=== PATIENT | female | born 1985 | race American Indian/Alaskan Native ===

== ENCOUNTER 2016-07-31 13:33 | Emergency (ER) | payer MEDICAID ==
[2016-07-31 14:31] VITALS: BP 140/77
[2016-07-31] MEDS: TYLENOL/CODEINE PO ONE ×2 (16:33→16:54)
[2016-07-31] MEDS ORDERED: TYLENOL/CODEINE PO ONE (16:33)
[2016-07-31] MEDS ORDERED: DECADRON PO ONE (16:33)
[2016-07-31] MEDS ORDERED: LIDOCAINE VISCOUS 2% PO ONE (16:33)
--- NOTE | 2016-07-31 16:35 | Emergency Department Report ---
ED ENT HPI - General Chief complaint: Sore Throat Stated complaint: SWOLLEN TONSILS Time Seen by Provider: 07/31/16 16:34 Source: patient Mode of arrival: Ambulatory Limitations: No Limitations - History of Present Illness Initial comments: Patient reports sore throat that started three days ago and a history of tonsillitis MD complaint: sore throat Onset/Timin -: days(s) Location: throat Severity: severe Severity scale (0 -10): 8 Quality: aching Consistency: constant Improves with: none Worsens with: swallowing Context-Epistaxis: other (none) Context- Dental: other (none) Context- Ear: other (none) Associated Symptoms: pain with swallowing, sore throat - Related Data Previous Rx's Medication Instructions Recorded Last Taken Type Amoxicillin [Amoxicillin TAB] 875 mg PO BID #20 tablet 07/31/16 Unknown Rx predniSONE [Deltasone] 20 mg PO BID #10 tablet 07/31/16 Unknown Rx Allergies Allergy/AdvReac Type Severity Reaction Status Date / Time No Known Allergies Allergy Verified 07/31/16 16:54 ED Dental HPI - General Chief complaint: Sore Throat Stated complaint: SWOLLEN TONSILS Source: patient Mode of arrival: Ambulatory Limitations: No Limitations - Related Data Previous Rx's Medication Instructions Recorded Last Taken Type Amoxicillin [Amoxicillin TAB] 875 mg PO BID #20 tablet 07/31/16 Unknown Rx predniSONE [Deltasone] 20 mg PO BID #10 tablet 07/31/16 Unknown Rx Allergies Allergy/AdvReac Type Severity Reaction Status Date / Time No Known Allergies Allergy Verified 07/31/16 16:54 ED Review of Systems ROS: Stated complaint: SWOLLEN TONSILS Other details as noted in HPI Constitutional: denies: chills, diaphoresis, fever, malaise, weakness Eyes: denies: eye pain, eye discharge, vision change ENT: throat pain. denies: ear pain, dental pain, hearing loss, epistaxis, congestion Respiratory: denies: cough, orthopnea, shortness of breath, SOB with exertion, SOB at rest, stridor, wheezing Cardiovascular: denies: chest pain, palpitations, dyspnea on exertion, orthopnea , edema, syncope, paroxysmal nocturnal dyspnea Gastrointestinal: denies: abdominal pain, nausea, vomiting, diarrhea, constipation Neurological: denies: headache, weakness, numbness, paresthesias, confusion, abnormal gait, vertigo ED Past Medical Hx - Past Medical History Previous Medical History?: No - Surgical History Additional Surgical History: C section - Social History Smoking Status: Never Smoker Substance Use Type: Alcohol - Medications Home Medications: Home Medications Medication Instructions Recorded Confirmed Last Taken Type Amoxicillin [Amoxicillin TAB] 875 mg PO BID #20 tablet 07/31/16 Unknown Rx predniSONE [Deltasone] 20 mg PO BID #10 tablet 07/31/16 Unknown Rx ED Physical Exam - General Limitations: No Limitations General appearance: alert, in no apparent distress - Head Head exam: Present: atraumatic, normocephalic - Eye Eye exam: Present: normal appearance, PERRL, EOMI Pupils: Present: normal accommodation - ENT ENT exam: Present: mucous membranes moist, TM's normal bilaterally, normal external ear exam. Absent: mucous membranes dry - Expanded ENT Exam Expanded Mouth exam: Present: normal external inspection, tongue normal. Absent: drooling, trismus, muffled voice, tongue elevation, laceration Teeth exam: Present: normal inspection Throat exam: Positive: tonsillomegaly, tonsillar exudate. Negative: tonsillar erythema, R peritonsillar mass, L peritonsillar mass - Neck Neck exam: Present: normal inspection, full ROM, lymphadenopathy. Absent: tenderness, meningismus, thyromegaly - Respiratory Respiratory exam: Present: normal lung sounds bilaterally. Absent: respiratory distress, wheezes, rales, rhonchi, stridor - Cardiovascular Cardiovascular Exam: Present: regular rate, normal rhythm, normal heart sounds. Absent: systolic murmur, diastolic murmur, rubs, gallop - Extremities Exam Extremities exam: Present: normal inspection, full ROM, normal capillary refill. Absent: tenderness, pedal edema, joint swelling - Neurological Exam Neurological exam: Present: alert, oriented X3, CN II-XII intact, normal gait, reflexes normal. Absent: motor sensory deficit - Skin Skin exam: Present: warm, dry, intact, normal color. Absent: rash ED Course Vital Signs 07/31/16 14:26 Temperature 98.3 F Pulse Rate 84 Respiratory 18 Rate Blood Pressure 140/77 O2 Sat by Pulse 100 Oximetry - Reevaluation(s) Reevaluation #1: 07/31/16 17:17 pain medication, oral steroid with lidocaine viscous ordered ED Medical Decision Making - Lab Data Vital Signs 07/31/16 14:26 Temperature 98.3 F Pulse Rate 84 Respiratory 18 Rate Blood Pressure 140/77 O2 Sat by Pulse 100 Oximetry - Medical Decision Making During the course of ED, pain medication, oral steroids and lidocaine viscous were ordered. The patient was sent home with prescriptions for Amoxicillin and Prednisone, instructed to follow up with the selective referral given at discharge, she verbalized understanding - Differential Diagnosis Tonsilititis, Upper Respiratory Infection Critical care attestation.: If time is entered above; I have spent that time in minutes in the direct care of this critically ill patient, excluding procedure time. ED Disposition Clinical Impression: Acute bacterial tonsillitis Disposition: DISCHARGED TO HOME OR SELFCARE Is pt being admited?: No Does the pt Need Aspirin: No Condition: Stable Instructions: Tonsillitis (ED) Additional Instructions: Take medication as directed. Follow up with the selective referral given at discharge. Return back to the ED for worsening symptoms or concerns Prescriptions: Amoxicillin [Amoxicillin TAB] 875 mg PO BID #20 tablet predniSONE [Deltasone] 20 mg PO BID #10 tablet Referrals: TITI ALBARADO MD [Staff Physician] - 3-5 Days Forms: Work/School Release Form(ED) Time of Disposition: 17:21
== END 2016-07-31 17:34 | disposition home or self-care (01) ==
LOC: ED 13:33
DX: J03.80 Acute tonsillitis due to other specified organisms (principal); B96.89 Other specified bacterial agents as the cause of diseases classified elsewhere
CPT/HCPCS: 99282; J1100

== ENCOUNTER 2016-09-06 13:50 | Emergency (ER) | payer MEDICAID ==
[2016-09-06] MEDS ORDERED: TORADOL IM ONE (15:19)
[2016-09-06] MEDS ORDERED: DECADRON IM ONE (15:19)
--- NOTE | 2016-09-06 18:39 | Emergency Department Report ---
Entered by IRINA CARBAJAL, acting as scribe for ALDARIUS HARRISON PA. ED ENT HPI - General Chief complaint: Sore Throat Stated complaint: SWOLLEN TONSILS/MIGRAINE Source: patient Mode of arrival: Ambulatory Limitations: No Limitations - History of Present Illness Initial comments: 31 year old female with a PMHx of tonsillitis annually presents to the ED c/o a sore throat that began 3 days ago. Rates pain an 8/10 in severity. Associated symptoms headache, and left ear pain, but she denies nausea, vomiting, fever, chills, SOB, and chest pain. Reports pain worsens with swallowing and is alleviated by nothing. Notes she had a past appointment for a tonsillectomy before moving to [place]. Denies having a PCP. LMP 09/06/2016. NKDA. INIGUEZ complaint: sore throat, difficulty swallowing Onset/Timin -: days(s) Location: L ear, throat Severity: moderate Severity scale (0 -10): 8 Quality: aching Improves with: none Worsens with: swallowing Associated Symptoms: pain with swallowing, sore throat, other (difficulty swallowing and left neck swelling, but denies nausea, vomiting, chest pain, and SOB). denies: fever, cough - Related Data Previous Rx's Medication Instructions Recorded Last Taken Type Amoxicillin [Amoxicillin TAB] 875 mg PO BID #20 tablet 07/31/16 Unknown Rx predniSONE [Deltasone] 20 mg PO BID #10 tablet 07/31/16 Unknown Rx Amoxicillin 500 mg PO Q8H #21 capsule 09/06/16 Unknown Rx Ketorolac [Toradol] 10 mg PO Q6H PRN #20 tablet 09/06/16 Unknown Rx methylPREDNISolone [Medrol Dose 4 mg PO QAM #1 pack 09/06/16 Unknown Rx Jim] Allergies Allergy/AdvReac Type Severity Reaction Status Date / Time No Known Allergies Allergy Verified 07/31/16 16:54 ED Dental HPI - General Chief complaint: Sore Throat Stated complaint: SWOLLEN TONSILS/MIGRAINE Source: patient Mode of arrival: Ambulatory Limitations: No Limitations - History of Present Illness complaint: sore throat Onset/Timin -: days(s) Severity: moderate Quality: aching Consistency: constant Improves with: none Worsens with: swallowing Dental Associated Symptons: Yes: Headache, Earache. No: Sore Throat, Fever - Related Data Previous Rx's Medication Instructions Recorded Last Taken Type Amoxicillin [Amoxicillin TAB] 875 mg PO BID #20 tablet 07/31/16 Unknown Rx predniSONE [Deltasone] 20 mg PO BID #10 tablet 07/31/16 Unknown Rx Amoxicillin 500 mg PO Q8H #21 capsule 09/06/16 Unknown Rx Ketorolac [Toradol] 10 mg PO Q6H PRN #20 tablet 09/06/16 Unknown Rx methylPREDNISolone [Medrol Dose 4 mg PO QAM #1 pack 09/06/16 Unknown Rx Jim] Allergies Allergy/AdvReac Type Severity Reaction Status Date / Time No Known Allergies Allergy Verified 07/31/16 16:54 ED Review of Systems Comment: All other systems reviewed and negative Constitutional: denies: chills, fever, other (tingling) ENT: ear pain (left ear), throat pain Respiratory: denies: cough, shortness of breath, stridor, wheezing Cardiovascular: denies: chest pain Gastrointestinal: denies: abdominal pain, nausea, vomiting Genitourinary: denies: dysuria Musculoskeletal: denies: back pain Skin: denies: rash Neurological: headache. denies: numbness ED Past Medical Hx - Past Medical History Previous Medical History?: Yes Hx Headaches / Migraines: Yes - Surgical History Past Surgical History?: No Additional Surgical History: C section - Social History Smoking Status: Never Smoker Substance Use Type: Alcohol - Medications Home Medications: Home Medications Medication Instructions Recorded Confirmed Last Taken Type Amoxicillin [Amoxicillin TAB] 875 mg PO BID #20 tablet 07/31/16 Unknown Rx predniSONE [Deltasone] 20 mg PO BID #10 tablet 07/31/16 Unknown Rx Amoxicillin 500 mg PO Q8H #21 capsule 09/06/16 Unknown Rx Ketorolac [Toradol] 10 mg PO Q6H PRN #20 tablet 09/06/16 Unknown Rx methylPREDNISolone [Medrol Dose 4 mg PO QAM #1 pack 09/06/16 Unknown Rx Jim] ED Physical Exam - General Limitations: No Limitations General appearance: alert, in no apparent distress - Head Head exam: Present: atraumatic, normocephalic - Eye Eye exam: Present: normal appearance, EOMI - ENT ENT exam: Present: normal exam, mucous membranes moist, TM's normal bilaterally - Expanded ENT Exam Expanded Ear exam: Present: normal external inspection Mouth exam: Present: normal external inspection Teeth exam: Present: normal inspection Throat exam: Positive: tonsillomegaly, tonsillar exudate (mild exudate bilaterally). Negative: tonsillar erythema, R peritonsillar mass, L peritonsillar mass - Neck Neck exam: Present: normal inspection, full ROM. Absent: lymphadenopathy - Respiratory Respiratory exam: Present: normal lung sounds bilaterally. Absent: respiratory distress, wheezes, rales, rhonchi - Cardiovascular Cardiovascular Exam: Present: regular rate, normal rhythm. Absent: systolic murmur, diastolic murmur, rubs, gallop - GI/Abdominal GI/Abdominal exam: Present: soft, normal bowel sounds - Extremities Exam Extremities exam: Present: normal inspection, full ROM - Back Exam Back exam: Present: normal inspection, full ROM - Neurological Exam Neurological exam: Present: alert, oriented X3, normal gait - Psychiatric Psychiatric exam: Present: normal affect, normal mood - Skin Skin exam: Present: warm, dry, intact. Absent: rash ED Course Vital Signs 09/06/16 14:05 Temperature 98.3 F Pulse Rate 84 Respiratory 18 Rate Blood Pressure 137/85 O2 Sat by Pulse 100 Oximetry ED Medical Decision Making - Lab Data negative strep test Pending Strep Culture Lab Results 09/06/16 Range/Units Unknown Urine HCG, Qual Negative (Negative) - Medical Decision Making 31 year old female presents to ED with bilateral throat pain. Patient denies difficulty breathing or talking. patient states she has annual swelling of tonsils. Patient will be given RX for steroids, abx and NSAID's and referred to ENT for further evaluation. No sign of peritonsillar abscess, drooling, fever, dysphagia or labored breathing present on examination. ED Disposition Clinical Impression: Tonsillitis Disposition: DISCHARGED TO HOME OR SELFCARE Is pt being admited?: No Does the pt Need Aspirin: No Condition: Stable Instructions: Tonsillitis (ED) Additional Instructions: Please return to ED immediately if you have difficulty breathing or if swelling worsens. Prescriptions: Amoxicillin 500 mg PO Q8H #21 capsule Ketorolac [Toradol] 10 mg PO Q6H PRN #20 tablet PRN Reason: Pain methylPREDNISolone [Medrol Dose Jim] 4 mg PO QAM #1 pack Referrals: PRIMARY CAREMD [Primary Care Provider] - 3-5 Days ENT [facility] [Provider Group] - 3-5 Days Forms: Work/School Release Form(ED) This documentation as recorded by the scribeSOLOMON JASMINE,accurately reflects the service I personally performed and the decisions made by ,LADARIUS HARRISON PA.
[2016-09-06 18:50] VITALS: BP 143/86
== END 2016-09-06 18:48 | disposition home or self-care (01) ==
LOC: ED 13:50
DX: J03.90 Acute tonsillitis, unspecified (principal); G43.909 Migraine, unspecified, not intractable, without status migrainosus
CPT/HCPCS: 81025; 87116; 87430; 96372; 99283; J1100; J1885

== ENCOUNTER 2017-04-15 16:54 | Emergency (ER) | payer MEDICAID ==
[2017-04-15 17:07] VITALS: BP 113/60
--- NOTE | 2017-04-15 18:28 | Emergency Department Report ---
ED General Adult HPI - General Chief complaint: Sore Throat Stated complaint: THROAT PAIN Time Seen by Provider: 04/15/17 18:05 Source: patient Mode of arrival: Ambulatory Limitations: No Limitations - History of Present Illness Initial comments: 32 year old female presents with sore throat, cough, congestion for a few days. states taking otc medication with no relief. denies fever, cp, sob, abdominal pain, pelvic pain, vaginal bleeding. states that she had LMP on 03/06/17 and is 8 days late for her current cycle. denies taking medication for symptoms. -: Gradual, days(s) (2) - Related Data Previous Rx's Medication Instructions Recorded Last Taken Type predniSONE [Deltasone] 20 mg PO BID #10 tablet 07/31/16 Unknown Rx Amoxicillin 500 mg PO Q8H #21 capsule 09/06/16 Unknown Rx Ketorolac [Toradol] 10 mg PO Q6H PRN #20 tablet 09/06/16 Unknown Rx methylPREDNISolone [Medrol Dose 4 mg PO QAM #1 pack 09/06/16 Unknown Rx Jim] Amoxicillin [Amoxicillin TAB] 875 mg PO BID #14 tablet 04/15/17 Unknown Rx Fluticasone [Flonase] 1 spray NS QDAY #1 bottle 04/15/17 Unknown Rx Loratadine [Claritin] 10 mg PO DAILY #20 tablet 04/15/17 Unknown Rx Allergies Allergy/AdvReac Type Severity Reaction Status Date / Time No Known Allergies Allergy Verified 07/31/16 16:54 ED Review of Systems ROS: Stated complaint: THROAT PAIN Other details as noted in HPI Constitutional: denies: chills, fever Eyes: denies: eye pain, eye discharge, vision change ENT: throat pain, congestion. denies: ear pain Respiratory: cough. denies: shortness of breath, wheezing Cardiovascular: denies: chest pain, palpitations Endocrine: no symptoms reported Gastrointestinal: denies: abdominal pain, nausea, diarrhea Genitourinary: denies: urgency, dysuria, discharge Musculoskeletal: denies: back pain, joint swelling, arthralgia Skin: denies: rash, lesions Neurological: denies: headache, weakness, paresthesias Psychiatric: denies: anxiety, depression Hematological/Lymphatic: denies: easy bleeding, easy bruising ED Past Medical Hx - Past Medical History Previous Medical History?: Yes Hx Headaches / Migraines: Yes - Surgical History Past Surgical History?: Yes Additional Surgical History: C section - Social History Smoking Status: Current Every Day Smoker Substance Use Type: Alcohol - Medications Home Medications: Home Medications Medication Instructions Recorded Confirmed Last Taken Type predniSONE [Deltasone] 20 mg PO BID #10 tablet 07/31/16 Unknown Rx Amoxicillin 500 mg PO Q8H #21 capsule 09/06/16 Unknown Rx Ketorolac [Toradol] 10 mg PO Q6H PRN #20 tablet 09/06/16 Unknown Rx methylPREDNISolone [Medrol Dose 4 mg PO QAM #1 pack 09/06/16 Unknown Rx Jim] Amoxicillin [Amoxicillin TAB] 875 mg PO BID #14 tablet 04/15/17 Unknown Rx Fluticasone [Flonase] 1 spray NS QDAY #1 bottle 04/15/17 Unknown Rx Loratadine [Claritin] 10 mg PO DAILY #20 tablet 04/15/17 Unknown Rx ED Physical Exam - General Limitations: No Limitations General appearance: alert, in no apparent distress - Head Head exam: Present: atraumatic, normocephalic - Eye Eye exam: Present: normal appearance - ENT ENT exam: Present: normal orophraynx, mucous membranes moist, TM's normal bilaterally - Neck Neck exam: Present: normal inspection, full ROM. Absent: tenderness, lymphadenopathy - Respiratory Respiratory exam: Present: normal lung sounds bilaterally. Absent: respiratory distress, wheezes, rales, rhonchi, stridor - Cardiovascular Cardiovascular Exam: Present: regular rate, normal rhythm. Absent: systolic murmur, diastolic murmur, rubs, gallop - GI/Abdominal GI/Abdominal exam: Present: soft, normal bowel sounds - Extremities Exam Extremities exam: Present: normal inspection - Back Exam Back exam: Present: normal inspection - Neurological Exam Neurological exam: Present: alert, oriented X3 - Psychiatric Psychiatric exam: Present: normal affect, normal mood - Skin Skin exam: Present: warm, dry, intact, normal color. Absent: rash ED Course Vital Signs 04/15/17 17:03 Temperature 98.2 F Pulse Rate 76 Respiratory 18 Rate Blood Pressure 113/60 O2 Sat by Pulse 100 Oximetry ED Medical Decision Making - Lab Data Vital Signs 04/15/17 17:03 Temperature 98.2 F Pulse Rate 76 Respiratory 18 Rate Blood Pressure 113/60 O2 Sat by Pulse 100 Oximetry Laboratory Results - last 24 hr 04/15/17 17:17 Urine HCG, Qual Positive A - Medical Decision Making patient is resting comfortably at this time. VSS and NAD. positive test here. will treat for tonsillitis. Critical care attestation.: If time is entered above; I have spent that time in minutes in the direct care of this critically ill patient, excluding procedure time. ED Disposition Clinical Impression: URI, acute, Acute bronchitis Disposition: - TO HOME OR SELFCARE Is pt being admited?: No Does the pt Need Aspirin: No Condition: Good Instructions: Acute Bronchitis (ED) Prescriptions: Amoxicillin [Amoxicillin TAB] 875 mg PO BID #14 tablet Fluticasone [Flonase] 1 spray NS QDAY #1 bottle Loratadine [Claritin] 10 mg PO DAILY #20 tablet Referrals: KRZYSZTOF FARMER MD [Staff Physician] - 3-5 Days Forms: Work/School Release Form(ED) Time of Disposition: 18:28
== END 2017-04-15 18:30 | disposition home or self-care (01) ==
LOC: ED 16:54
DX: J20.9 Acute bronchitis, unspecified (principal); J06.9 Acute upper respiratory infection, unspecified; G43.909 Migraine, unspecified, not intractable, without status migrainosus; F17.200 Nicotine dependence, unspecified, uncomplicated
CPT/HCPCS: 81025; 99283

== ENCOUNTER 2017-05-02 11:12 | Emergency (ER) | payer MEDICAID ==
[2017-05-02] MEDS ORDERED: BICILLIN L-A IM ONE (13:04)
[2017-05-02] MEDS ORDERED: TYLENOL PO ONE (13:08)
--- NOTE | 2017-05-02 13:12 | Emergency Department Report ---
Minor Respiratory - HPI Chief Complaint: Sore Throat Stated Complaint: SWOLLEN TONSILS, SORE THROAT Time Seen by Provider: 05/02/17 13:06 Duration: SEEN ABOUT 2 W AGO; NON COMPL W MEDS; RECURRENT TONSIL/PHARN Pain Location: Throat Severity: severe Minor Respiratory: Yes Sore Throat, Yes Able to Tolerate Fluids, Yes Fever, No Rhinorrhea, No Ear Pain, No Cough, No Sick Contacts, No Hemoptysis, No Chest Pain, No Shortness of Breath ED Review of Systems ROS: Stated complaint: SWOLLEN TONSILS, SORE THROAT Other details as noted in HPI Comment: All other systems reviewed and negative ENT: throat pain ED Past Medical Hx - Past Medical History Hx Headaches / Migraines: Yes - Surgical History Additional Surgical History: C section - Social History Smoking Status: Current Every Day Smoker Substance Use Type: Alcohol - Medications Home Medications: Home Medications Medication Instructions Recorded Confirmed Last Taken Type predniSONE [Deltasone] 20 mg PO BID #10 tablet 07/31/16 Unknown Rx Amoxicillin 500 mg PO Q8H #21 capsule 09/06/16 Unknown Rx Ketorolac [Toradol] 10 mg PO Q6H PRN #20 tablet 09/06/16 Unknown Rx methylPREDNISolone [Medrol Dose 4 mg PO QAM #1 pack 09/06/16 Unknown Rx Jim] Amoxicillin [Amoxicillin TAB] 875 mg PO BID #14 tablet 04/15/17 Unknown Rx Fluticasone [Flonase] 1 spray NS QDAY #1 bottle 04/15/17 Unknown Rx Loratadine [Claritin] 10 mg PO DAILY #20 tablet 04/15/17 Unknown Rx Minor Respiratory Exam - Exam General: Vital signs noted. No distress. Alert and acting appropriately. HEENT: Yes Pharyngeal Erythema, Yes Pharyngeal Exudates, No Moist Mucous Membranes, No Rhinorrhea, No Conjuctival Injection, No Frontal Tenderness, No Maxillary Tenderness Ear: Neither TM Bulge, Neither TM Erythema, Neither EAC Pain, Neither EAC Discharge Neck: Yes Adenopathy, Yes Supple Lungs: Yes Good Air Exchange, No Wheezes, No Ronchi, No Stridor, No Cough, No Labored Respirations, No Retractions, No Use of Accessory Muscles, No Other Abnormal Lung Sounds Heart: Yes Regular, No Murmur Abdomen: Yes Normal Bowel Sounds, No Tenderness, No Peritoneal Signs Skin: No Rash, No Edema Neurologic: Alert and oriented, no deficits. Musculoskeletal: Unremarkable. ED Course Vital Signs 05/02/17 12:17 Temperature 99.2 F Pulse Rate 93 H Respiratory 16 Rate Blood Pressure 108/57 O2 Sat by Pulse 100 Oximetry - Reevaluation(s) Reevaluation #1: 05/02/17 13:12 TO ER 2 W AGO W SAME DID NOT TAKE MEDS PREG LMP NOV [id number] TONSILS RED W EXUDATE MEDICATED DC HOME W FU TAKING PO NO ABSCESS ON EXAM THIS IS CHRONIC ISSUE FOR PT ED Medical Decision Making - Medical Decision Making SEE NOTE - Differential Diagnosis A/C PHARYNGITIS Critical care attestation.: If time is entered above; I have spent that time in minutes in the direct care of this critically ill patient, excluding procedure time. ED Disposition Clinical Impression: Exudative pharyngitis, Tonsillitis Disposition: TO HOME OR SELFCARE Is pt being admited?: No Does the pt Need Aspirin: No Condition: Stable Instructions: Pharyngitis (ED) Additional Instructions: NEW TOOTH BRUSH GOOD ORAL CARE LET OB KNOW YOU HAVE THIS ISSUE OVER AND OVER YOU SHOULD SEE ENT FOR THE CHRONIC TONSIL ISSUES TYLENOL FOR PAIN OR FEVER Referrals: CHILO SOMERS MD [Staff Physician] - 3-5 Days YUE PRIETO MD [Staff Physician] - 3-5 Days Time of Disposition: 13:09
[2017-05-02 13:39] VITALS: BP 120/68
--- NOTE | 2017-05-02 14:21 | Emergency Department Report ---
Blank Doc - Documentation Documentation: ADD TO DX LIST
== END 2017-05-02 13:37 | disposition home or self-care (01) ==
LOC: ED 11:12
DX: J03.90 Acute tonsillitis, unspecified (principal); J02.9 Acute pharyngitis, unspecified; F17.200 Nicotine dependence, unspecified, uncomplicated; G43.909 Migraine, unspecified, not intractable, without status migrainosus
CPT/HCPCS: 96372; 99282; J0561

== ENCOUNTER 2017-12-28 09:39 | Emergency (ER) | payer SELFPAY ==
[2017-12-28 10:19] VITALS: BP 113/66
--- NOTE | 2017-12-28 11:14 | Emergency Department Report ---
Blank Doc - Documentation Documentation: Chief complaint: Skin rash one month History of present illness: 32-year-old woman, previously healthy, presents with persistent skin rash which has been spreading across various areas of her body in a scattered, localized fashion, including torso, extremities, neck, face , and a single lesion on the palm of her hand. Lesions began as small flat fairly firm areas, there is questionable development of blistering or vesiculation, but skin erosions, area become scabbed, circumscribed, and then expands from that area. She has surrounding swelling erythema and tenderness around various lesions in later stages. She's had no known exposure, is in good health, takes no routine medications, and denies any sexual exposures. She has no secondary symptoms, no fever chills or diaphoresis, no cough or congestion. No abdominal pain, no joint pain, no swelling. Past medical history: Good general health Family social history, nonsmoker Allergies, no known allergies On examination she has normal vital signs, she appeared in good health and spirits and in no acute distress. Skin: Multiple flat isolated lesions of various sizes about various of torso, all extremities, base of neck, at scalp line, single small lesion at right palm , no lesions on soles; several are excoriated and scabbed, but little evidence of secondary swelling. Lesions are firm, excoriated lesions are well circumscribed. Several lesions are 2-3 cm in size, with moderate surrounding erythema induration and tenderness. No ulcerations. There is no active drainage. Eyes: Pupils equal round and reactive, no scleral icterus, no conjunctival injection ENT: No nasal congestion, pharynx is benign without lesions Neck without JVD. Abdomen unremarkable and without evidence of organomegaly, masses, or abdominal aortic enlargement. Extremities nonedematous. Medical decision making: Patient's findings, chronicity and persistence are typical of tinea corporis, and they appear to be secondarily excoriated and infected, and I will treat patient with antifungal and antibacterials conjointly. Antihistamine may be taken to decrease her scratching. ED Disposition Clinical Impression: Tinea corporis, Cellulitis Disposition: DC-01 TO HOME OR SELFCARE Is pt being admited?: No Does the pt Need Aspirin: No Condition: Stable Instructions: Tinea Corporis (ED), Cellulitis (ED) Prescriptions: Cephalexin [Keflex] 500 mg PO QID #40 capsule Fluconazole [Diflucan TAB] 100 mg PO QDAY #10 tablet Referrals: PRIMARY CARE, [Primary Care Provider] - 3-5 Days Time of Disposition: 11:22
[2017-12-28] MEDS ORDERED: KEFLEX PO ONE (11:22)
[2017-12-28] MEDS ORDERED: DIFLUCAN PO ONE (11:22)
== END 2017-12-28 11:49 | disposition home or self-care (01) ==
LOC: ED 09:39
DX: B35.4 Tinea corporis (principal); L03.211 Cellulitis of face; L03.221 Cellulitis of neck
CPT/HCPCS: 99282